=== PATIENT | male | born 1960 | race African-American/Black ===

== ENCOUNTER 2023-05-31 23:57 | Emergency (ER) | payer SELFPAY ==
[~2023-05-31] VITALS: Ht 182.9 cm; Wt 68.0 kg
[2023-06-01 00:09] VITALS: BP 140/86; PULSE 78; RESP 16; TEMP 98.5; O2SAT 99
[2023-06-01] MEDS ORDERED: CEPH500T MT (02:00)
[2023-06-01] MEDS ORDERED: SULF1TAB48 MT (02:00)
== END 2023-06-01 02:14 | disposition home or self-care (01) ==
LOC: ER 23:57
DX: L02.416 Cutaneous abscess of left lower limb (principal); I10 Essential (primary) hypertension
CPT/HCPCS: 99283

== ENCOUNTER 2024-05-13 18:43 | Inpatient (IN) | payer MEDICAID ==
[~2024-05-13] VITALS: Ht 177.8 cm; Wt 68.0 kg
[~2024-05-13 18:43] MED LIST: CEPH500T MT; SULF1TAB48 MT
[2024-05-13 18:50] VITALS: O2SAT 99
[2024-05-14] VITALS (25 sets, daily range): BP systolic 56–210; BP diastolic 43–192; PULSE 61–138; RESP 12–45; TEMP 94–98
[2024-05-14] MEDS: SODIUM CHLORIDE 0.9% 1,000 ML IV ONE (00:59)
[2024-05-14 01:05] LABS: HEMOGLOBIN. 19.3 g/dL (14.0-18.0); MEAN CORPUSCULAR HEMOGLOBIN 23.7 pg (28.0-32.0); MEAN CORPUSCULAR HGB CONC 30.8 g/dL (31.0-37.0); MEAN CORPUSCULAR VOLUME 76.8 fL (80.0-94.0); RED BLOOD CELL COUNT > 8.00 mill/uL (4.7-6.1); WHITE BLOOD COUNT 23.3 x1000/uL (4.5-11.0)
[2024-05-14 01:16] LABS: DIFFERENTIAL COMMENT 1; HEMATOCRIT. 62.7 % (42.0-52.0)
[2024-05-14 02:41] LABS: HEMATOCRIT. 58.9 % (42.0-52.0); HEMOGLOBIN. 17.9 g/dL (14.0-18.0); MEAN CORPUSCULAR HEMOGLOBIN 23.9 pg (28.0-32.0); MEAN CORPUSCULAR HGB CONC 30.4 g/dL (31.0-37.0); MEAN CORPUSCULAR VOLUME 78.8 fL (80.0-94.0); RED BLOOD CELL COUNT 7.48 mill/uL (4.7-6.1); RED CELL DISTRIBUTION WIDTH 15.8 % (11.6-14.6); WHITE BLOOD COUNT 23.6 x1000/uL (4.5-11.0)
[2024-05-14 02:44] LABS: CHLORIDE 101 mEq/L (98-107); POTASSIUM 5.2 mEq/L (3.5-5.1); SODIUM 137 mEq/L (136-145)
[2024-05-14 02:45] LABS: CALCIUM 9.7 mg/dL (8.7-10.4); CARBON DIOXIDE 19 mEq/L (21-32)
[2024-05-14 02:49] LABS: DIFFERENTIAL COMMENT 1
[2024-05-14 02:50] LABS: GLUCOSE 107 mg/dL (70-105); UREA NITROGEN BLOOD 37 mg/dL (9-23)
[2024-05-14 02:52] LABS: ALANINE AMINOTRANSFERASE 73 IU/L (10-49); ASPARTATE AMINOTRANSFERASE 76 IU/L (<34)
[2024-05-14 02:53] LABS: BILIRUBIN TOTAL 0.9 mg/dL (0.1-1.0); PROTEIN TOTAL 7.3 g/dL (6.0-8.3)
[2024-05-14] MEDS: SODIUM CHLORIDE 0.9% 1000ML BAG (SEPSIS BOLUS) IV ONE (03:00)
[2024-05-14] MEDS: CEFTRIAXONE 1GM/50ML 50 ML IV ONE (03:00)
[2024-05-14 03:33] LABS: TROPONIN I HIGH SENSITIVITY 192 ng/L (3.0-53)
[2024-05-14 04:56] LABS: PLATELET ESTIMATE NORMAL
[2024-05-14 04:57] LABS: MEAN PLATELET VOLUME 10.8 fl (7.4-10.4); PLATELET 259 x1000/uL (130-400)
[2024-05-14 05:15] LABS: PLATELET ESTIMATE NORMAL
[2024-05-14 05:17] LABS: MEAN PLATELET VOLUME 10.2 fl (7.4-10.4); PLATELET 244 x1000/uL (130-400)
[2024-05-14] MEDS ORDERED: NALOXONE HCL 0.4MG/ML VIAL IV PRN (15:30)
[2024-05-14] MEDS ORDERED: HYDROCODONE/ACETAMINOPHEN 5/325MG TABLET PO PRN (15:30)
[2024-05-14] MEDS ORDERED: SODIUM CHLORIDE 0.9% 1,000 ML IV SCH (15:30)
[2024-05-14] MEDS ORDERED: DEXT 10% WATER 1,000 ML IV SCH (15:30)
[2024-05-14] MEDS ORDERED: ONDANSETRON HCL 4MG/2ML INJ IV PRN (15:30)
[2024-05-14] MEDS ORDERED: PANTOPRAZOLE SODIUM 40 MG/VIAL IV SCH (15:30)
[2024-05-14] MEDS ORDERED: ACETAMINOPHEN 325MG TABLET PO PRN (15:30)
[2024-05-14] MEDS ORDERED: CLONIDINE 0.1MG TABLET PO PRN (15:30)
[2024-05-14] MEDS ORDERED: IPRATROPIUM/ALBUTEROL 0.5-3(2.5)MG/3ML NEB NEB PRN (15:30)
[2024-05-14 15:57] LABS: BG BASE EXCESS -21.4 mmol/L (-2.0-2.0); BG CARBOXYHEMOGLOBIN 1.2 % (0.5-1.5); BG DEOXYHEMOGLOBIN 5.2 % (0.0-5.0); BG FRACTION INSPIRED OXYGEN 36; BG HCO3 ACT 7.4 mmol/L (22.0-26.0); BG METHEMOGLOBIN 0.3 % (0.0-1.5); BG OXYGEN SATURATION 94.7 % (92.0-98.5); BG OXYHEMOGLOBIN 93.3 % (94.0-97.0); BG PCO2 26.1 mmHg (35.0-45.0); BG PH 7.068 (7.350-7.450); BG PO2 86.9 mmHg (75.0-100.0); BG TOTAL HEMOGLOBIN 15.2 g/dL (12.0-18.0); BG VENT MODE NASAL CANNULA
[2024-05-14] MEDS ORDERED: ENOXAPARIN 30MG/0.3ML SYR SUBCUT SCH (16:00)
[2024-05-14] MEDS: GLUCAGON,HUMAN RECOMBINANT 1MG/VIAL IM NR (16:15)
[2024-05-14] MEDS: SODIUM BICARBONATE 8.4% 50MEQ/50ML SYR IV NR ×2 (16:28→21:23)
[2024-05-14] MEDS: DEXT 10% WATER 1,000 ML IV SCH (16:30)
[2024-05-14] MEDS ORDERED: BLOOD SUGAR DIAGNOSTIC STRIP TEST SCH ×2 (17:20→20:00)
[2024-05-14] MEDS ORDERED: INSULIN LISPRO 100 UNITS/ML SUBCUT SCH (17:50)
[2024-05-14 18:26] LABS: HEPATITIS B SURFACE ANTIGEN NEGATIVE (Negative)
[2024-05-14 18:46] LABS: HEPATITIS A AB IGM NEGATIVE (Negative)
[2024-05-14 18:47] LABS: HEPATITIS B CORE AB IGM NEGATIVE (Negative); LACTIC ACID 13.7 mmol/L (0.4-2.0)
[2024-05-14 18:48] LABS: HEPATITIS C AB NON REACTIVE (Neg) (Negative); PHOSPHORUS 11.5 mg/dL (2.5-4.9)
[2024-05-14] MEDS: MEROPENEM 1G/100ML 100 ML IV SCH (18:49)
[2024-05-14 18:56] LABS: CHLORIDE 101 mEq/L (98-107); POTASSIUM 5.6 mEq/L (3.5-5.1); SODIUM 137 mEq/L (136-145)
[2024-05-14 18:57] LABS: CALCIUM 8.8 mg/dL (8.7-10.4)
[2024-05-14 19:02] LABS: GLUCOSE 180 mg/dL (70-105); UREA NITROGEN BLOOD 57 mg/dL (9-23)
[2024-05-14 19:10] LABS: CARBON DIOXIDE < 10 mEq/L (21-32); CREATININE 4.5 mg/dL (0.6-1.3)
[2024-05-14] MEDS: DEXTROSE 50% WATER 50ML SYRINGE IV PRN (20:43)
[2024-05-14 20:56] LABS: HEMOGLOBIN. 16.1 g/dL (14.0-18.0); MEAN CORPUSCULAR HEMOGLOBIN 23.8 pg (28.0-32.0); MEAN CORPUSCULAR HGB CONC 29.8 g/dL (31.0-37.0); MEAN CORPUSCULAR VOLUME 79.8 fL (80.0-94.0); RED BLOOD CELL COUNT 6.77 mill/uL (4.7-6.1); WHITE BLOOD COUNT 11.1 x1000/uL (4.5-11.0)
[2024-05-14] MEDS: BLOOD SUGAR DIAGNOSTIC STRIP TEST SCH (21:00)
[2024-05-14 21:03] LABS: DIFFERENTIAL COMMENT 1
[2024-05-14 21:26] LABS: MEAN PLATELET VOLUME 11.5 fl (7.4-10.4); PLATELET 198 x1000/uL (130-400)
[2024-05-14 21:29] LABS: ANISOCYTOSIS 1+; HYPOCHROMASIA 1+; MICROCYTOSIS 1+; PLATELET ESTIMATE NORMAL
[2024-05-14] MEDS: VANCOMYCIN 1.5GM/250ML 250 ML IV NR (21:34)
[2024-05-14] MEDS: HYDROCORTISONE SOD SUCCINATE 100 MG/2 ML VIAL IV SCH (21:35)
[2024-05-14 21:38] LABS: AMMONIA 119 uMol/L (<32)
[2024-05-14 21:46] LABS: BG BASE EXCESS -17.6 mmol/L (-2.0-2.0); BG CARBOXYHEMOGLOBIN 1.3 % (0.5-1.5); BG DEOXYHEMOGLOBIN 13.3 % (0.0-5.0); BG FRACTION INSPIRED OXYGEN 32; BG HCO3 ACT 12.2 mmol/L (22.0-26.0); BG METHEMOGLOBIN 0.3 % (0.0-1.5); BG OXYGEN SATURATION 86.5 % (92.0-98.5); BG OXYHEMOGLOBIN 85.1 % (94.0-97.0); BG PCO2 43.1 mmHg (35.0-45.0); BG PO2 69.3 mmHg (75.0-100.0); BG SAMPLE SITE LEFT BRACHIAL; BG TOTAL HEMOGLOBIN 15.2 g/dL (12.0-18.0); BG VENT MODE OXYGENATOR
[2024-05-14] MEDS ORDERED: DEXTROSE 10% IV SCH (22:00)
[2024-05-14] MEDS ORDERED: SODIUM BICARBONATE IV SCH (22:00)
[2024-05-14] MEDS ORDERED: WATER IV SCH (22:00)
[2024-05-14] MEDS: SODIUM BICARBONATE 100 MEQ in DEXT 10% WATER 900 ML IV SCH (23:01)
[2024-05-14 23:22] LABS: CLARITY URINE CLOUDY (CLEAR); COLOR URINE DARK YELLOW (YELLOW); GLUCOSE URINE NEGATIVE (NEGATIVE); KETONES URINE NEGATIVE (NEGATIVE); LEUKOCYTE ESTERASE URINE NEGATIVE (NEGATIVE); NITRITE URINE NEGATIVE (NEGATIVE); OCCULT BLOOD URINE NEGATIVE (NEGATIVE); PROTEIN URINE 2+ (NEGATIVE); SPECIFIC GRAVITY URINE 1.017 (1.005-1.030); UROBILINOGEN URINE 0.2 E.U./dL (0.2-1.0)
[2024-05-14] MEDS: NOREPINEPHRINE 8MG/250ML PMX 250 ML IV PRN (23:31)
[2024-05-14 23:35] LABS: *AMPHETAMINES SCREEN URINE NEGATIVE (NEGATIVE); *BARBITURATES SCREEN URINE NEGATIVE (NEGATIVE); *BENZODIAZEPINES SCREEN URINE NEGATIVE (NEGATIVE); *COCAINE SCREEN URINE PRESUMPTIVE POSITIVE (NEGATIVE)
[2024-05-14 23:36] LABS: POTASSIUM 5.5 mEq/L (3.5-5.1)
[2024-05-14 23:36] LABS: CANNABINOID URINE SCREEN PRESUMPTIVE POSITIVE (NEGATIVE); METHADONE URINE SCREEN NEGATIVE (NEGATIVE); OPIATES URINE SCREEN NEGATIVE (NEGATIVE); PHENCYCLIDINE URINE SCREEN NEGATIVE (NEGATIVE)
[2024-05-14 23:37] LABS: CALCIUM 8.6 mg/dL (8.7-10.4)
[2024-05-14 23:41] LABS: CREATININE 4.9 mg/dL (0.6-1.3)
[2024-05-14 23:44] LABS: CREATINE KINASE MB FRACTION 89.9 ng/mL (0.5-3.6)
[2024-05-15] VITALS (20 sets, daily range): BP systolic 44–202; BP diastolic 12–122; PULSE 25–128; RESP 0–24; TEMP 97
[2024-05-15] MEDS ORDERED: PHENYLEPHRINE 50MG/250ML PMX 250 ML IV PRN (00:30)
[2024-05-15] MEDS: LACTULOSE 20G/30ML UDC PO SCH (00:40)
[2024-05-15] MEDS: LEVETIRACETAM 1000MG PREMIX 100 ML IV NR (00:40)
[2024-05-15 01:43] LABS: BG BASE EXCESS -20.8 mmol/L (-2.0-2.0); BG CARBOXYHEMOGLOBIN 2.2 % (0.5-1.5); BG DEOXYHEMOGLOBIN 19.3 % (0.0-5.0); BG FRACTION INSPIRED OXYGEN 100; BG HCO3 ACT 16.4 mmol/L (22.0-26.0); BG METHEMOGLOBIN 0.3 % (0.0-1.5); BG OXYGEN SATURATION 80.2 % (92.0-98.5); BG OXYHEMOGLOBIN 78.2 % (94.0-97.0); BG PH 6.784 (7.350-7.450); BG PO2 72.5 mmHg (75.0-100.0); BG SAMPLE SITE RIGHT FEMORAL; BG TOTAL HEMOGLOBIN 15.1 g/dL (12.0-18.0); BG VENT MODE VENT - AC
[2024-05-15] MEDS: PANTOPRAZOLE 80 MG in SODIUM CHLORIDE 0.9% 100 ML IV SCH (02:11)
[2024-05-15] MEDS: NOREPINEPHRINE 32 MG in DEXT 5% WATER 218 ML IV PRN (02:12)
[2024-05-15 02:16] LABS: SQUAMOUS EPITHELIAL CELL URINE FEW /lpf (RARE/1+)
[2024-05-15 02:20] LABS: BACTERIA URINE TRACE; RBC URINE NONE SEEN /hpf (0-2)
[2024-05-15] MEDS ORDERED: EPINEPHRINE 5 MG in SODIUM CHLORIDE 0.9% 245 ML IV PRN (02:45)
[2024-05-15] MEDS ORDERED: DOPAMINE 400MG/250ML PREMIX 250 ML IV PRN (02:45)
[2024-05-15] MEDS: PHENYLEPHRINE 100 MG in DEXT 5% WATER 240 ML IV PRN (02:55)
[2024-05-15] MEDS: EPINEPHRINE 10 MG in SODIUM CHLORIDE 0.9% 240 ML IV PRN (02:56)
[2024-05-15] MEDS ORDERED: ATROPINE SULFATE 1MG/10ML SYR ONE (04:00)
[2024-05-15] MEDS ORDERED: THIAMINE HCL 200 MG in SODIUM CHLORIDE 0.9% 98 ML IV SCH (09:00)
== END 2024-05-15 03:30 | DRG 720 ==
LOC: EDBD 18:43 → ER 18:43 → EDBEDREQTM 05-14 03:27 → EDBEDREQ 05-14 03:27 → 5WST 05-14 03:54 → 6WST 05-14 08:45 → CVICU 05-14 17:44
PROVIDERS: ADMIT Internal Medicine; ATTEND Internal Medicine
PROC: 0BH17EZ Insertion of Endotracheal Airway into Trachea, Via Natural or Artificial Opening (ICD-10-PCS; principal; 2024-05-14)
PROC: 5A1935Z Respiratory Ventilation, Less than 24 Consecutive Hours (ICD-10-PCS; 2024-05-14)
PROC: 5A12012 Performance of Cardiac Output, Single, Manual (ICD-10-PCS; 2024-05-15)
PROC: 06HY33Z Insertion of Infusion Device into Lower Vein, Percutaneous Approach (ICD-10-PCS; 2024-05-15)
PROC: B54CZZA Ultrasonography of Left Lower Extremity Veins, Guidance (ICD-10-PCS; 2024-05-15)
DX: A41.9 Sepsis, unspecified organism (principal); J96.01 Acute respiratory failure with hypoxia; I46.9 Cardiac arrest, cause unspecified; G93.41 Metabolic encephalopathy; I21.4 Non-ST elevation (NSTEMI) myocardial infarction; D72.825 Bandemia; E11.22 Type 2 diabetes mellitus with diabetic chronic kidney disease; J44.9 Chronic obstructive pulmonary disease, unspecified; E11.649 Type 2 diabetes mellitus with hypoglycemia without coma; E87.20 Acidosis, unspecified; E86.0 Dehydration; F41.9 Anxiety disorder, unspecified; R65.20 Severe sepsis without septic shock; N17.9 Acute kidney failure, unspecified; I12.9 Hypertensive chronic kidney disease with stage 1 through stage 4 chronic kidney disease, or unspecified chronic kidney disease; N18.9 Chronic kidney disease, unspecified; E87.5 Hyperkalemia; D75.1 Secondary polycythemia; W18.39XA Other fall on same level, initial encounter; Y93.89 Activity, other specified; Y92.89 Other specified places as the place of occurrence of the external cause; Y99.8 Other external cause status; S09.8XXA Other specified injuries of head, initial encounter; F17.210 Nicotine dependence, cigarettes, uncomplicated
CPT/HCPCS: 31500; 36415; 36600; 71045; 76700; 80048; 80053; 80305; 81003; 82140; 82375; 82533; 82550; 82553; 82805; 82962; 83036; 83605; 83735; 83880; 84100; 84145; 84443; 84484; 85025; 86705; 86709; 87070; 87340; 92950; 93005; 93970; 94003; 99291; J0461; J0696; J1265; J1610; J1720; J1953; J2185; J2470; J3370; J3411; J3475; J3490; J7030; J7050